=== PATIENT | male | born 2000 | race Caucasian/White ===

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

== ENCOUNTER 2020-12-16 09:32 | Emergency (ER) | payer BC, MEDICAID ==
[~2020-12-16] VITALS: Ht 180.3 cm; Wt 99.7 kg
[2020-12-16] MEDS ORDERED: LACTATED RINGERS 1,000 ML IV STA (09:42)
--- NOTE | 2020-12-16 09:44 | ED GI ---
General Chief Complaint: Abdominal/GI Problems Stated Complaint: N/V Source of Information: Patient Exam Limitations: No Limitations History of Present Illness Date Seen by Provider: Dec 16, 2020 Time Seen by Provider: 09:33 Initial Comments Patient presents ER by private conveyance from home with chief complaint that he has been vomiting incessantly every 20 to 30 minutes since 2 AM this morning, 7 hours ago. He ate [employer] about 10 PM last night a chicken lee [place] sandwich. No one was with him and no one else got sick that he is aware of. He suspects maybe he had food poisoning. He does not have anything for nausea at home. He is not able to keep any fluids down. No diarrhea or abdominal pain. He has had no abdominal surgeries or trauma. No fevers or chills. Patient states he has no allergies to ondansetron or medical allergies at all that he is aware of. Allergies and Home Medications Allergies Coded Allergies: No Known Drug Allergies (Unverified , 12/16/20) Home Medications No Active Prescriptions or Reported Meds Patient Home Medication List Home Medication List Reviewed: Yes Review of Systems Review of Systems Constitutional: No chills, No diaphoresis EENTM: No Blurred Vision, No Double Vision Respiratory: Denies Cough, Denies Orthopnea Cardiovascular: Denies Chest Pain, Denies Lightheadedness Gastrointestinal: See HPI; Denies Abdominal Pain, Denies Constipated, Denies Diarrhea; Nausea, Poor Fluid Intake, Vomiting Genitourinary: Denies Burning, Denies Discharge Musculoskeletal: No back pain, No joint pain All Other Systems Reviewed Negative Unless Noted: Yes Past Enwcqiv-Qxhput-Qhekhq Hx Patient Social History Alcohol Use: Denies Use Drug of Choice: Denies Smoking Status: Never a Smoker Recent Hopitalizations: No Immunizations Up To Date Tetanus Booster (TDap): Less than 5yrs PED Vaccines UTD: Yes Seasonal Allergies Seasonal Allergies: Yes Past Medical History Surgeries: Yes (DENTAL SURGERY) Tonsillectomy Respiratory: No Cardiac: No Neurological: No Reproductive Disorders: No Genitourinary: No Gastrointestinal: No Musculoskeletal: No Endocrine: No HEENT: No Cancer: No Psychosocial: No Integumentary: No Blood Disorders: No Physical Exam Vital Signs Vital Signs - First Documented 12/16/20 09:39 Temp 37.0 Pulse 116 Resp 17 B/P (MAP) 135/105 (115) Pulse Ox 97 O2 Delivery Room Air Capillary Refill : Height/Weight/BMI Height: 5'11.00" Weight: 180lbs. oz. 81.591240pn; 21.09 BMI Method:Stated General Appearance: WD/WN, mild distress HEENT: PERRL/EOMI, pharynx normal Neck: full range of motion, normal inspection Respiratory: lungs clear, normal breath sounds, no respiratory distress, no accessory muscle use Cardiovascular: normal peripheral pulses, regular rate, rhythm, tachycardia (Heart rate around 120) Gastrointestinal: normal bowel sounds, soft, tenderness (Mild epigastric) Extremities: non-tender, normal inspection, no pedal edema Neurologic/Psychiatric: no motor/sensory deficits, alert, normal mood/affect, oriented x 3 Skin: normal color, warm/dry Progress/Results/Core Measures Results/Orders Lab Results Laboratory Tests Test 12/16/20 09:45 Range/Units White Blood Count 16.2 H 4.3-11.0 10^3/uL Red Blood Count 5.90 H 4.30-5.52 10^6/uL Hemoglobin 17.0 13.3-17.7 g/dL Hematocrit 51 40-54 % Mean Corpuscular Volume 86 80-99 fL Mean Corpuscular Hemoglobin 29 25-34 pg Mean Corpuscular Hemoglobin Concent 34 32-36 g/dL Red Cell Distribution Width 12.6 10.0-14.5 % Platelet Count 307 130-400 10^3/uL Mean Platelet Volume 10.4 9.0-12.2 fL Immature Granulocyte % (Auto) 0 % Neutrophils (%) (Auto) 91 H 42-75 % Lymphocytes (%) (Auto) 3 L 12-44 % Monocytes (%) (Auto) 5 0-12 % Eosinophils (%) (Auto) 0 0-10 % Basophils (%) (Auto) 0 0-10 % Neutrophils # (Auto) 14.8 H 1.8-7.8 10^3/uL Lymphocytes # (Auto) 0.5 L 1.0-4.0 10^3/uL Monocytes # (Auto) 0.8 0.0-1.0 10^3/uL Eosinophils # (Auto) 0.0 0.0-0.3 10^3/uL Basophils # (Auto) 0.0 0.0-0.1 10^3/uL Immature Granulocyte # (Auto) 0.1 0.0-0.1 10^3/uL Neutrophils % (Manual) 80 % Lymphocytes % (Manual) 3 % Monocytes % (Manual) 2 % Eosinophils % (Manual) 1 % Basophils % (Manual) 0 % Band Neutrophils 14 % Blood Morphology Comment NORMAL Sodium Level 141 135-145 MMOL/L Potassium Level 4.3 3.6-5.0 MMOL/L Chloride Level 106 98-107 MMOL/L Carbon Dioxide Level 23 21-32 MMOL/L Anion Gap 12 5-14 MMOL/L Blood Urea Nitrogen 14 7-18 MG/DL Creatinine 0.89 0.60-1.30 MG/DL Estimat Glomerular Filtration Rate > 60 BUN/Creatinine Ratio 16 Glucose Level 117 H 70-105 MG/DL Calcium Level 9.7 8.5-10.1 MG/DL Corrected Calcium 8.5-10.1 MG/DL Total Bilirubin 0.8 0.1-1.0 MG/DL Aspartate Amino Transf (AST/SGOT) 35 H 5-34 U/L Alanine Aminotransferase (ALT/SGPT) 74 H 0-55 U/L Alkaline Phosphatase 143 H 40-136 U/L C-Reactive Protein High Sensitivity 0.51 H 0.00-0.50 MG/DL Total Protein 8.4 H 6.4-8.2 GM/DL Albumin 5.1 H 3.2-4.5 GM/DL Lipase 19 8-78 U/L My Orders Orders - KARINA ONEILL Ondansetron Injection (Zofran Injectio (12/16/20 09:45) Lactated Ringers (Lr 1000 Ml Iv Solution (12/16/20 09:42) Cbc With Automated Diff (12/16/20 09:42) Comprehensive Metabolic Panel (12/16/20 09:42) Hs C Reactive Protein (12/16/20 09:42) Lipase (12/16/20 09:42) Pantoprazole Injection (Protonix Injecti (12/16/20 09:45) Ketorolac Injection (Toradol Injection) (12/16/20 10:00) Manual Differential (12/16/20 09:45) Medications Given in ED Current Medications Medications Dose Ordered Sig/Sherrie Route Start Time Stop Time Status Last Admin Dose Admin Ketorolac Tromethamine 30 mg ONCE ONCE IVP 12/16/20 10:00 12/16/20 10:01 DC 12/16/20 09:54 30 MG Ondansetron HCl 8 mg ONCE ONCE IVP 12/16/20 09:45 12/16/20 09:46 DC 12/16/20 09:48 8 MG Pantoprazole 40 mg ONCE ONCE IV 12/16/20 09:45 12/16/20 09:46 DC 12/16/20 09:48 40 MG Vital Signs/I&O 12/16/20 09:39 Temp 37.0 Pulse 116 Resp 17 B/P (MAP) 135/105 (115) Pulse Ox 97 O2 Delivery Room Air Progress Progress Note #1: Time: 09:50 Progress Note Ondansetron, lactated Ringer's, Toradol for his abdominal discomfort and pantoprazole. Nonacute surgical abdomen. No mesenteric signs. Progress Note #2: Time: 10:31 Progress Note The patient's nausea is gone. He has had no retching since he arrived. His pain has subsided. He is comfortable has a nonsurgical abdomen and normal, aseptic vital signs. He is about 100 cc of fluids left ago and then were going to allow him to go home for likely viral versus toxic gastroenteritis. The marginal elevation of his AST and ALT are not convincing for hepatitis. This plus his marginal white count is likely due to his incessant vomiting. Departure Impression Primary Impression: Gastroenteritis Disposition: 01 HOME, SELF-CARE Condition: Stable Departure-Patient Inst. Decision time for Depature: 10:30 Referrals: [facility] (PCP/Family) Primary Care Physician Patient Instructions: [id number] Add. Discharge Instructions: Your nausea vomiting is likely due to toxins from food poisoning or possibly a virus. Should resolve in the next day or 2. Ondansetron 1 tablet every 6 hours as necessary. Drink plenty of fluids. Tylenol or Motrin as necessary for pain. Return to the ER promptly if your symptoms worsen or persist for more than 3 days. If you develop diarrhea then allow it to go for the first day. If you are not able to keep up with your hydration or your diarrhea is persisting for more than 24 to 48 hours then you can start loperamide. Loperamide/Imodium 2 tablets initially and then 1 tablet every 4 hours afterwards that you are having a loose, watery stool. All discharge instructions reviewed with patient and/or family. Voiced understanding. Scripts Ondansetron (Ondansetron Odt) 4 Mg Tab.rapdis 4 MG PO Q6H PRN for NAUSEA/VOMITING, #12 TAB 0 Refills Prov: KARINA ONEILL 12/16/20 Work/School Note: Work Release Form Date Seen in the Emergency Department: Dec 16, 2020 Return to Work: Dec 19, 2020 Restrictions: No Restrictions Other Restrictions Listed Below: May return sooner when symptom-free for 24 hours. KARINA ONEILL Dec 16, 2020 09:44
[2020-12-16] MEDS ORDERED: ONDANSETRON 4 MG/2 ML (SDV) Z0FRAN IVP ONE (09:45)
[2020-12-16] MEDS ORDERED: PANTOPRAZOLE 40 MG (PROTONIX) VIAL IV ONE (09:45)
[2020-12-16 09:52] LABS: BASOPHILS % (AUTO) 0 % (0-10); EOSINOPHILS % (AUTO) 0 % (0-10); HEMATOCRIT 51 % (40-54); LYMPHOCYTES # (AUTO) 0.5 10^3/uL (1.0-4.0); LYMPHOCYTES % (AUTO) 3 % (12-44); MEAN CORPUSCULAR HEMOGLOBIN 29 pg (25-34); MEAN CORPUSCULAR HGB CONC 34 g/dL (32-36); MEAN CORPUSCULAR VOLUME 86 fL (80-99); MEAN PLATELET VOLUME 10.4 fL (9.0-12.2); MONOCYTES # (AUTO) 0.8 10^3/uL (0.0-1.0); MONOCYTES % (AUTO) 5 % (0-12); NEUTROPHILS # (AUTO) 14.8 10^3/uL (1.8-7.8); NEUTROPHILS % (AUTO) 91 % (42-75); PLATELET COUNT 307 10^3/uL (130-400); WHITE BLOOD COUNT 16.2 10^3/uL (4.3-11.0)
[2020-12-16] MEDS ORDERED: KETOROLAC 30 MG/ML VIAL IVP ONE (10:00)
[2020-12-16 10:03] LABS: ALBUMIN 5.1 GM/DL (3.2-4.5); CHLORIDE 106 MMOL/L (98-107); POTASSIUM 4.3 MMOL/L (3.6-5.0); SODIUM 141 MMOL/L (135-145)
[2020-12-16 10:04] LABS: CALCIUM 9.7 MG/DL (8.5-10.1)
[2020-12-16 10:05] LABS: GLUCOSE 117 MG/DL (70-105)
[2020-12-16 10:06] LABS: TOTAL PROTEIN 8.4 GM/DL (6.4-8.2)
[2020-12-16 10:07] LABS: BILIRUBIN,TOTAL 0.8 MG/DL (0.1-1.0); CARBON DIOXIDE 23 MMOL/L (21-32)
[2020-12-16 10:09] LABS: ALKALINE PHOSPHATASE 143 U/L (40-136); CREATININE SERUM 0.89 MG/DL (0.60-1.30); GFR ESTIMATED > 60
[2020-12-16 10:10] LABS: BUN/CREATININE RATIO 16
[2020-12-16 10:12] LABS: ALANINE AMINOTRANSFERASE 74 U/L (0-55); LIPASE 19 U/L (8-78)
[2020-12-16 10:28] LABS: BAND NEUTROPHILS 14 %; BASOPHILS % (MANUAL) 0 %; EOSINOPHILS % (MANUAL) 1 %; LYMPHOCYTES % (MANUAL) 3 %; MONOCYTES % (MANUAL) 2 %; NEUTROPHILS % (MANUAL) 80 %
[2020-12-16 10:29] LABS: RBC MORPH NORMAL
[2020-12-16] MEDS ORDERED: ONDA4TAB11 PO (10:34)
[2020-12-16 10:43] VITALS: BP 120/100
== END 2020-12-16 10:43 | disposition home or self-care (01) ==
LOC: EDUNIT# 09:32 → ER 09:35
DX: K52.9 Noninfective gastroenteritis and colitis, unspecified (principal)
CPT/HCPCS: 36415; 80053; 83690; 85007; 85027; 86141

== ENCOUNTER 2021-12-10 08:09 | Emergency (ER) | payer SELFPAY ==
[~2021-12-10] VITALS: Ht 154 cm; Wt 95.0 kg
[~2021-12-10 08:09] MED LIST changes: +ONDA4TAB11 PO
[2021-12-10] MEDS ORDERED: LACTATED RINGERS 1,000 ML IV STA (08:46)
--- NOTE | 2021-12-10 08:51 | ED Abdominal Pain ---
General Chief Complaint: Abdominal/GI Problems Stated Complaint: VOMITING / DIARRHEA Nursing Triage Note: AMB TO ED WITH FEMALE PATIENT STATES ONSET OF VOMITING AFTER EATING A SAUSAGE BISCUITI Source of Information: Patient Exam Limitations: No Limitations History of Present Illness Date Seen by Provider: Dec 10, 2021 Time Seen by Provider: 08:26 Initial Comments Here with report of nausea, vomiting and diarrhea that started yesterday. Thinks he may have gotten food poisoning although he is not sure. States he had a similar illness last year. Reports feeling hot and cold. Denies blood in his vomit or stool. He has been trying to drink Sprite. Will have episode of diarrhea after drinking and then will vomit after that. Denies other upper respiratory illnesses or other problems. He is vaccinated for Covid and influenza. Timing/Duration: 12-24 Hours Severity/Quality: Moderate, Aching (Upper abdomen), Cramping Location: Other (Upper abdomen) Radiation: No Radiation Activities at Onset: None Modifying Factors: Improves With Defecating; Worsens With Eating; Improves With Vomiting Associated Symptoms: No Back Pain, No Chest Pain; Fever/Chills, Nausea/Vomiting; No Shortness of Air, No Weakness Allergies and Home Medications Allergies Coded Allergies: No Known Drug Allergies (Unverified , 12/16/20) Patient Home Medication List Home Medication List Reviewed: Yes Ondansetron (Ondansetron Odt) 4 Mg Tab.rapdis, 4 MG PO Q6H PRN for NAUSEA/VOM ITING Prescribed by: KARINA ONEILL on 12/16/20 1034 Review of Systems Review of Systems Constitutional: see HPI; No diaphoresis, No weakness EENTM: No Nose Congestion, No Throat Pain Respiratory: Denies Cough, Denies Shortness of Air Cardiovascular: No Symptoms Reported Gastrointestinal: Abdominal Pain, Diarrhea, Nausea, Vomiting Genitourinary: No Symptoms Reported Musculoskeletal: No back pain; muscle pain (Upper abdominal muscles) Skin: no symptoms reported All Other Systems Reviewed Negative Unless Noted: Yes Past Sapufcv-Cgmorb-Aaefxo Hx Patient Social History Tobacco Use?: No Use of E-Cig and/or Vaping dev: No Alcohol Use?: No Immunizations Up To Date Tetanus Booster (TDap): Less than 5yrs PED Vaccines UTD: Yes First/Initial COVID19 Vaccinat: DECEMBER 2020 Second COVID19 Vaccination Tez: JANUARY 2021 COVID19 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 Seasonal Allergies Seasonal Allergies: Yes Past Medical History Surgeries: Yes (DENTAL SURGERY) Tonsillectomy Respiratory: No Cardiac: No Neurological: No Reproductive Disorders: No Genitourinary: No Gastrointestinal: No Musculoskeletal: No Endocrine: No HEENT: No Cancer: No Psychosocial: No Integumentary: No Blood Disorders: No Family Medical History Reviewed Nursing Family Hx Physical Exam Vital Signs Vital Signs - First Documented 12/10/21 08:17 Temp 36.0 Pulse 88 Resp 18 B/P (MAP) 141/91 (108) Pulse Ox 98 O2 Delivery Room Air Capillary Refill : Less Than 3 Seconds Height/Weight/BMI Height: 5'11.00" Weight: 180lbs. oz. 81.651045ph; 40.00 BMI Method:Stated General Appearance: WD/WN, no apparent distress HEENT: PERRL/EOMI, pharynx normal Neck: full range of motion, supple Respiratory: lungs clear, normal breath sounds Cardiovascular: no murmur, tachycardia Gastrointestinal: soft, abnormal bowel sounds (Hyperactive), tenderness (One of the musculature in the upper abdomen) Extremities: normal range of motion, non-tender Back: normal inspection, no CVA tenderness, no vertebral tenderness Neurologic/Psychiatric: alert, oriented x 3 Skin: normal color, warm/dry Progress/Results/Core Measures Results/Orders Lab Results Laboratory Tests Test 12/10/21 08:50 Range/Units White Blood Count 9.5 4.3-11.0 10^3/uL Red Blood Count 5.37 4.30-5.52 10^6/uL Hemoglobin 15.9 13.3-17.7 g/dL Hematocrit 46 40-54 % Mean Corpuscular Volume 86 80-99 fL Mean Corpuscular Hemoglobin 30 25-34 pg Mean Corpuscular Hemoglobin Concent 34 32-36 g/dL Red Cell Distribution Width 12.9 10.0-14.5 % Platelet Count 245 130-400 10^3/uL Mean Platelet Volume 10.4 9.0-12.2 fL Immature Granulocyte % (Auto) 0 % Neutrophils (%) (Auto) 86 H 42-75 % Lymphocytes (%) (Auto) 6 L 12-44 % Monocytes (%) (Auto) 6 0-12 % Eosinophils (%) (Auto) 1 0-10 % Basophils (%) (Auto) 0 0-10 % Neutrophils # (Auto) 8.2 H 1.8-7.8 10^3/uL Lymphocytes # (Auto) 0.6 L 1.0-4.0 10^3/uL Monocytes # (Auto) 0.6 0.0-1.0 10^3/uL Eosinophils # (Auto) 0.1 0.0-0.3 10^3/uL Basophils # (Auto) 0.0 0.0-0.1 10^3/uL Immature Granulocyte # (Auto) 0.0 0.0-0.1 10^3/uL Neutrophils % (Manual) 88 % Lymphocytes % (Manual) 7 % Monocytes % (Manual) 4 % Eosinophils % (Manual) 1 % Nucleated Red Blood Cells 1 Blood Morphology Comment NORMAL Sodium Level 141 135-145 MMOL/L Potassium Level 4.1 3.6-5.0 MMOL/L Chloride Level 108 H 98-107 MMOL/L Carbon Dioxide Level 20 L 21-32 MMOL/L Anion Gap 13 5-14 MMOL/L Blood Urea Nitrogen 14 7-18 MG/DL Creatinine 0.88 0.60-1.30 MG/DL Estimat Glomerular Filtration Rate 125 BUN/Creatinine Ratio 16 Glucose Level 105 70-105 MG/DL Calcium Level 9.9 8.5-10.1 MG/DL Corrected Calcium 8.5-10.1 MG/DL Total Bilirubin 1.3 H 0.1-1.0 MG/DL Aspartate Amino Transf (AST/SGOT) 26 5-34 U/L Alanine Aminotransferase (ALT/SGPT) 57 H 0-55 U/L Alkaline Phosphatase 124 40-136 U/L Total Protein 7.8 6.4-8.2 GM/DL Albumin 4.8 H 3.2-4.5 GM/DL My Orders Orders - BELINDA MERCEDES MD Cbc With Automated Diff (12/10/21 08:46) Comprehensive Metabolic Panel (12/10/21 08:46) Ondansetron Injection (Zofran Injectio (12/10/21 09:00) Lactated Ringers (Lr 1000 Ml Iv Solution (12/10/21 08:46) Hyoscyamine Sl Tablet (Levsin Sl Tablet) (12/10/21 09:00) Ed Iv/Invasive Line Start (12/10/21 08:46) Manual Differential (12/10/21 08:50) Medications Given in ED Current Medications Medications Dose Ordered Sig/Sherrie Route Start Time Stop Time Status Last Admin Dose Admin Hyoscyamine Sulfate 0.125 mg ONCE ONCE SL 12/10/21 09:00 12/10/21 09:01 DC 12/10/21 09:10 0.125 MG Ondansetron HCl 4 mg ONCE ONCE IVP 12/10/21 09:00 12/10/21 09:01 DC 12/10/21 09:09 4 MG Vital Signs/I&O 12/10/21 08:17 Temp 36.0 Pulse 88 Resp 18 B/P (MAP) 141/91 (108) Pulse Ox 98 O2 Delivery Room Air Blood Pressure Mean: 108 Progress Progress Note : Progress Note Seen and evaluated. IV, labs, LR 1 L bolus, Zofran 4 mg IV and Levsin 0.125 mg sublingual p.o. Monitor patient. 1020: Overall doing better. Fluids complete. Labs reviewed and no dramatic abnormalities noted. Discharged home with complication. Patient and family verbalized understanding instructions and agreement with plan. Departure Impression Primary Impression: Nausea and vomiting Qualified Codes: R11.2 - Nausea with vomiting, unspecified Additional Impression: Diarrhea Qualified Codes: R19.7 - Diarrhea, unspecified Disposition: HOME, SELF-CARE Condition: Stable Departure-Patient Inst. Decision time for Depature: 10:24 Referrals: [facility] [place] Primary Care Physician Patient Instructions: Nausea and Vomiting, Adult ED, Diarrhea, Adult ED, Dehydration, Adult (DC) Add. Discharge Instructions: All discharge instructions reviewed with patient and/or family. Voiced alanan venkatesh. Clear or light diet for the next 24 hours and then advance as tolerated. Drink plenty of fluids by taking small sips frequently. You may use [id number] Pepcid or the generic famotidine 20 mg daily as needed for stomach upset. You may use Tylenol/acetaminophen 1000 mg every 6-8 hours as needed for pain. Return for worse pain, fever, vomiting, weakness, breathing problems, persistent diarrhea, decreased urination or other concerns as needed. Take medications as directed. Scripts Ondansetron (Ondansetron Odt) 4 Mg Tab.rapdis 4 MG PO Q6H PRN for NAUSEA/VOMITING, #10 TAB 0 Refills Prov: MAGO,BELINDA D MD 12/10/21 Hyoscyamine Sulfate (Hyoscyamine Sulfate) 0.125 Mg Tab.subl 0.125 MG SL Q4H PRN for CRAMPS, #12 TAB 0 Refills Prov: BELINDA MERCEDES MD 12/10/21 BELINDA MERCEDES MD Dec 10, 2021 08:51
[2021-12-10 08:59] LABS: BASOPHILS % (AUTO) 0 % (0-10); EOSINOPHILS # (AUTO) 0.1 10^3/uL (0.0-0.3); EOSINOPHILS % (AUTO) 1 % (0-10); HEMATOCRIT 46 % (40-54); HEMOGLOBIN 15.9 g/dL (13.3-17.7); LYMPHOCYTES # (AUTO) 0.6 10^3/uL (1.0-4.0); LYMPHOCYTES % (AUTO) 6 % (12-44); MEAN CORPUSCULAR HEMOGLOBIN 30 pg (25-34); MEAN CORPUSCULAR HGB CONC 34 g/dL (32-36); MEAN CORPUSCULAR VOLUME 86 fL (80-99); MEAN PLATELET VOLUME 10.4 fL (9.0-12.2); MONOCYTES # (AUTO) 0.6 10^3/uL (0.0-1.0); MONOCYTES % (AUTO) 6 % (0-12); NEUTROPHILS # (AUTO) 8.2 10^3/uL (1.8-7.8); NEUTROPHILS % (AUTO) 86 % (42-75); PLATELET COUNT 245 10^3/uL (130-400); WHITE BLOOD COUNT 9.5 10^3/uL (4.3-11.0)
[2021-12-10] MEDS ORDERED: HYOSCYAMINE 0.125 MG (LEVSIN) TAB SL ONE (09:00)
[2021-12-10] MEDS ORDERED: ONDANSETRON 4 MG/2 ML (SDV) Z0FRAN IVP ONE (09:00)
[2021-12-10 09:14] LABS: ALBUMIN 4.8 GM/DL (3.2-4.5); CHLORIDE 108 MMOL/L (98-107); POTASSIUM 4.1 MMOL/L (3.6-5.0); SODIUM 141 MMOL/L (135-145)
[2021-12-10 09:15] LABS: CALCIUM 9.9 MG/DL (8.5-10.1)
[2021-12-10 09:16] LABS: GLUCOSE 105 MG/DL (70-105); TOTAL PROTEIN 7.8 GM/DL (6.4-8.2)
[2021-12-10 09:17] LABS: CARBON DIOXIDE 20 MMOL/L (21-32)
[2021-12-10 09:18] LABS: BILIRUBIN,TOTAL 1.3 MG/DL (0.1-1.0)
[2021-12-10 09:20] LABS: ALKALINE PHOSPHATASE 124 U/L (40-136); CREATININE SERUM 0.88 MG/DL (0.60-1.30); GFR ESTIMATED 125
[2021-12-10 09:21] LABS: BUN/CREATININE RATIO 16
[2021-12-10 09:23] LABS: ALANINE AMINOTRANSFERASE 57 U/L (0-55)
[2021-12-10 09:28] LABS: EOSINOPHILS % (MANUAL) 1 %; LYMPHOCYTES % (MANUAL) 7 %; MONOCYTES % (MANUAL) 4 %; NEUTROPHILS % (MANUAL) 88 %; NUCLEATED RED BLOOD CELLS 1; RBC MORPH NORMAL
[2021-12-10] MEDS ORDERED: ONDA4TAB11 PO (10:26)
[2021-12-10] MEDS ORDERED: HYOS-19 SL (10:26)
[2021-12-10 10:41] VITALS: BP 138/89
== END 2021-12-10 10:41 | disposition home or self-care (01) ==
LOC: EDUNIT# 08:09 → ER 08:10
DX: R11.2 Nausea with vomiting, unspecified (principal); R19.7 Diarrhea, unspecified
CPT/HCPCS: 36415; 80053; 85007; 85027